=== PATIENT | male | born 1955 | race Two or more races ===

== ENCOUNTER 2020-01-31 08:53 | Outpatient (CLI) | payer OTHER | END 2020-01-31 09:01 | disposition home or self-care (01) | LOC: RAD 08:53 → MAMO-SONO 09:15 | PROVIDERS: ATTEND Physical Medicine & Rehabilitation | DX: M25.511 Pain in right shoulder (principal); M75.41 Impingement syndrome of right shoulder ==

== ENCOUNTER 2020-04-01 14:07 | Outpatient (CLI) | payer OTHER | END 2020-04-01 14:19 | disposition home or self-care (01) | LOC: SONOGRAMA 14:07 | DX: N41.8 Other inflammatory diseases of prostate (principal); R10.2 Pelvic and perineal pain; I12.9 Hypertensive chronic kidney disease with stage 1 through stage 4 chronic kidney disease, or unspecified chronic kidney disease ==